=== PATIENT | male | born 2000 | race Two or more races ===

== ENCOUNTER 2024-03-23 19:13 | Emergency (ER) | payer BC, SELFPAY ==
[2024-03-23 19:14] VITALS: BMI 28.8
[2024-03-23 20:02] VITALS: BP 146/77; PULSE 121; RESP 18; TEMP 38.2; O2SAT 97
[2024-03-23] MEDS: NAPROXEN 250 MG TABLET 500 MG PO (20:10)
--- NOTE | 2024-03-23 20:13 | EDNOTE_ITS ---
Upper Respiratory Inf. RME/HPI General Chief Complaint: Dental/Oral/Throat Stated Complaint: SORE THROAT Time Seen by Provider: 03/23/24 20:02 Arrival date/time: 03/23/24 19:13 23M with history of asthma presents to ED with 1 day of fevers/chills and sore throat. Patient denies cough. Limitations: no limitations Related Data Previous Rx's ?Medication ?Instructions ?Recorded acetaminophen 650 mg 650 mg PO Q8H PRN fever or p ain 04/29/19 tablet,extended release #30 tabs ibuprofen 600 mg tablet 600 mg PO Q8H PRN fever or p ain 04/29/19 #30 tabs amoxicillin 500 mg tablet 500 mg PO BID 10 days #20 ta bs 03/23/24 Allergies Allergy/AdvReac Type Severity Reaction Status Date / Time No Known Allergies Allergy Verified 03/12/23 18:43 Review of Systems Review of Systems Systems Reviewed: All systems reviewed, normal except as documented Constitutional Constitutional: Reports system reviewed and no additional complaints, except as documented, Reports as per HPI, Reports chills, Reports fever(s) and Denies headache(s) ENT Ears, Nose, Mouth, and Throat: Reports as per HPI, Denies disequilibrium, Denies headache(s) and Reports sore throat Cardiovascular Cardiovascular: Reports system reviewed and no additional complaints, except as documented, Denies chest pain and Denies dyspnea Respiratory Respiratory: Reports system reviewed and no additional complaints, except as documented, Denies cough and Denies dyspnea Gastrointestinal Gastrointestinal: Reports system reviewed and no additional complaints, except as documented, Denies abdominal pain, Denies nausea and Denies vomiting Neurologic Neurologic: Reports system reviewed and no additional complaints, except as documented, Denies confusion, Denies disequilibrium and Denies headache(s) Psychiatric Psychiatric: Denies confusion Past Medical History Past Medical History CARDIAC: Negative Congestive Heart Failure RESPIRATORY: Positive Asthma and Bronchitis; Negative Chronic Obstructive Pulmonary Disease (COPD) GENITOURINARY: Negative Renal Disease ENDOCRINE: Negative Diabetes Mellitus Type 1 or Diabetes Mellitus Type 2 Social History SMOKING STATUS: Never smoker ED Exam General Limitations: Present no limitations General appearance: Present alert and in no apparent distress Head Head exam: Present atraumatic Eye Eye exam: Present normal appearance, PERRL and EOMI ENT ENT exam: Present mucous membranes moist Expanded ENT Exam Throat exam: Present tonsillar erythema, tonsillomegaly and tonsillar exudate Neck Neck exam: Present normal inspection, full ROM and trachea midline Chest Chest inspection: Present normal inspection and symmetric chest wall rise Respiratory Respiratory exam: Present normal lung sounds bilaterally Cardiovascular Cardiovascular exam: Present regular rate, normal rhythm and normal heart sounds Abdominal Exam Abdominal exam: Present soft and normal bowel sounds Extremities Exam Extremities exam: Present normal inspection and full ROM Back Exam Back exam: Present normal inspection and full ROM Neurological Exam Neurological exam: Present alert, oriented X3 and CN II-XII intact Psychiatric Psychiatric exam: Present normal affect and normal mood Skin Skin exam: Present warm, dry, intact and normal color Course Quality Measures none Orders Category Date Time Status Strep A Rapid Stat Lab 03/23/24 20:13 Completed Azithromycin Po [Zithromax PO] Med 03/23/24 20:37 Discontinued 1,000 mg PO X1 ONE Naproxen [Naprosyn] Med 03/23/24 20:06 Discontinued 500 mg PO X1 ONE cefTRIAXone [Rocephin] 1,000 mg Med 03/23/24 20:38 Discontinued Lidocaine 1% 20 ml [Xylocaine 1% 20 ML] 2.1 ml IM X1 Vital Signs Vital signs: Vital Signs Temperature 100.8 F H 03/23/24 20:02 Pulse Rate 121 H 03/23/24 20:02 Respiratory Rate 18 03/23/24 20:02 Blood Pressure 146/77 H 03/23/24 20:02 Pulse Oximetry (%) 97 03/23/24 20:02 Oxygen Delivery Method Room Air 03/23/24 20:02 O2 at 97% on RA and WNLs Upper Respiratory Infection MDM Narrative MDM Narrative:: 23M with history of asthma presents to ED with 1 day of fevers/chills and sore throat. Patient denies cough. Physical exam reveals red and swollen oropharynx with exudates. Clear lungs. Patient is mildly febrile, but does not appear toxic. Strep neg. Given symptoms, will still treat as possible false neg. Will also cover for GC since patient has multiple sexual partners. Patient data External records reviewed:: [facility] previous records Clinical information provided by:: patient Social determinants that could affect healthcare access:: none Patient has the following chronic illnesses:: asthma How is presenting disease/condition affected by chronic disease/condition?: uneffected by Evaluation data The following diagnostics were reviewed and interpreted by me:: lab results Lab and/or radiology exams considered but not ordered:: ordered Interpretation Summary: above Medications / Prescriptions Medications or Prescriptions considered but not ordered:: ordered Medication administrations:: Medication Administration History Discontinued Medications Azithromycin (Azithromycin 250 Mg Tablet) 1,000 mg PO X1 ONE Stop: 03/23/24 20:38 Ceftriaxone Sodium 1,000 mg/ (Lidocaine HCl 2.1 ml) 0 mg IM X1 ONE Stop: 03/23/24 20:39 Naproxen (Naproxen 250 Mg Tablet) 500 mg PO X1 ONE Stop: 03/23/24 20:07 Last Admin: 03/23/24 20:10 Dose: 500 mg Documented By: above Consultations Consultation(s) initiated? (list below): No Diagnosis Upper Respiratory Differential Diagnosis: upper respiratory infection, croup, otitis media, sinusitis, viral infection, bronchitis, influenza and pharyngitis Most likely diagnosis given after review of the tests above:: tonsillitis Admission Indicated Admission indicated?: not indicated Admission Request Was there a request for admission?: No Disposition Plan Disposition Plan: Discharge Discharge Attestation Discharge Attestation: The patient and all family members were given an opportunity to ask questions and understood the discharge instructions. Discharge instructions specifically effects, indications for sooner follow up or return to the emergency department, and the expected course of current diagnosis. Patient condition: Stable Discharge Plan Plan Patient Disposition: HOME (Self Care) Disposition Comment: Stable Prescriptions/Referrals Prescriptions/Med Rec: New amoxicillin 500 mg tablet 500 mg PO BID 10 Days Qty: 20 0RF No Action acetaminophen 650 mg tablet extended release 650 mg PO Q8H PRN (Reason: fever or pain) Qty: 30 0RF Rx Instructions: swallow whole; do not crush, chew, break, dissolve, cut, or open ibuprofen 600 mg tablet 600 mg PO Q8H PRN (Reason: fever or pain) Qty: 30 0RF Rx Instructions: prn pain / fever Problem List Clinical Impression: Acute tonsillitis Patient/Caregiver Discharge Instructions Education Materials: Tonsillitis in Adults Additional Instructions: Please follow-up with PCP within 24-48 hours and return immediately if symptoms worsen. Ibuprofen/Tylenol can be used simultaneously for greater fever/pain control. Print Language: Maltese Stand Alone Forms: Patient Portal Info Letter ACE/RANJIT Supervising Physician ACE/RANJIT Supervising Physician: Dr. Lugo
[2024-03-23 20:32] LABS: Strep A Rapid Negative (Negative)
[2024-03-23] MEDS: cefTRIAXone 1,000 MG, LIDOCAINE 1% 20 ML 2.1 ML IM (20:46)
[2024-03-23] MEDS: AZITHROMYCIN 250 MG TABLET 1000 MG PO (20:46)
[2024-03-23 20:50] VITALS: BP 127/62; PULSE 110; RESP 18; TEMP 37.8; O2SAT 99
== END 2024-03-23 20:50 | disposition home or self-care (01) ==
PROVIDERS: Physician Assistant; Emergency Provider Emergency Medicine
DX: J03.90 Acute tonsillitis, unspecified (principal); J45.909 Unspecified asthma, uncomplicated
CPT/HCPCS: 87651; 96372; 99283; J0696; J3490; A9270